=== PATIENT | female | born 1965 | race Asian ===

== ENCOUNTER 2018-10-25 00:26 | Emergency (ER) | payer SELFPAY ==
[~2018-10-25] VITALS: Ht 162.6 cm; Wt 57.0 kg
[2018-10-25] MEDS ORDERED: IBUPROFEN 600MG TABLET PO ONE (01:15)
[2018-10-25 02:49] VITALS: BP 135/87
== END 2018-10-25 02:51 | disposition home or self-care (01) ==
LOC: ER 00:45
DX: S90.02XA Contusion of left ankle, initial encounter (principal); W01.0XXA Fall on same level from slipping, tripping and stumbling without subsequent striking against object, initial encounter; Y93.89 Activity, other specified; Y92.89 Other specified places as the place of occurrence of the external cause; Y99.0 Civilian activity done for income or pay; R03.0 Elevated blood-pressure reading, without diagnosis of hypertension
CPT/HCPCS: 73610; 73630; 99283